=== PATIENT | male | born 1990 | race Caucasian/White ===

== ENCOUNTER → 2017-08-02 | Outpatient (CLI) | payer OTHER ==
--- NOTE | 2017-08-05 09:54 | CT ---
EXAM DESCRIPTION: Abdomen/Pelvis w/wo Contrast CLINICAL HISTORY: TESTICULAR CANCER. Orchiectomy. COMPARISON: None. TECHNIQUE: Patient given water-soluble oral barium contrast. Spiral-axial scans at 5.0 mm intervals through the abdomen and pelvis before and after standard dose nonionic IV contrast. Coronal and sagittal 2.0 mm reconstructions. No adverse reactions. Total Exam DLP 2083.53 mGy - cm. This exam was performed according to our departmental CT dose-optimization program which includes automated exposure control, adjustment of the mA and/or kV according to patient size and/or use of iterative reconstruction technique; to reduce radiation dose to as low as reasonably achievable (ALARA). 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 Postsurgical soft tissue changes and edema in the subcutaneous tissues with small air pockets. No fluid collection or abscess-like cavity. Residual fat in the left inguinal canal. Right spermatic cord and vessels present. Bilateral inguinal lymph nodes with short axis less than 1 cm diameter.. Lung bases and pleura: Focal pleural thickening right base. Liver, Stomach, Spleen, Adrenal Glands: Fatty infiltration the liver. Craniocaudal dimension of the right lobe 21.3 cm. No focal lesions. Stomach and adrenal glands are negative, oral contrast in the stomach and duodenum. Pancreas, Gallbladder, Ducts: Bile bladder visualized. Pancreas and ducts unremarkable. Kidneys and Ureters: Negative. Mesentery: Scattered lymph nodes less than 1 cm diameter short axis, in the mid abdomen and right lower quadrant. Otherwise Unremarkable. No free air or free fluid. Aorta: No aneurysm or periaortic mass. Small Bowel: Contains oral contrast with no distention. Terminal Ileum/Cecum: Not distended. Appendix normal caliber, contains oral contrast distally. Small lymph nodes in the adjacent mesentery. Colon: Normal caliber. Minimal redundancy of the sigmoid. Pelvic Organs: Prostate gland abutting the base of the urinary bladder. No enlarged lymph nodes in the pelvic cavity. No free fluid. Spine and Bony Pelvis: Spondylosis T11-12. Bony pelvis unremarkable. IMPRESSION: 1. Postsurgical changes in the left inguinal canal and subcutaneous tissues after left orchiectomy. 2. Small mesenteric lymph nodes in the right lower quadrant and mid abdomen with short axis less than 1 cm diameter. No para-aortic or pericaval adenopathy. Depending on cell type of testicular cancer, PET CT hybrid imaging may be helpful for staging. 3. Steatosis of the liver and hepatomegaly. No focal lesions. 4. Focal pleural thickening in the right base with no effusion. 5. T11-12 spondylosis. Electronically signed by: Deuce Moss MD 08/05/2017 9:53 AM [employer]
== END ==
LOC: CT 13:36
PROVIDERS: ATTEND Urology
DX: C62.10 Malignant neoplasm of unspecified descended testis (principal); K76.0 Fatty (change of) liver, not elsewhere classified; Z98.890 Other specified postprocedural states